=== PATIENT | female | born 1990 | race Caucasian/White ===

== ENCOUNTER 2017-06-18 20:32 | Emergency (ER) | payer BC, MEDICAID ==
[~2017-06-18] VITALS: Ht 165.1 cm; Wt 47.7 kg
[~2017-06-18 20:32] MED LIST: MOTRIN 600600 MG/TAB PO; PERCOCET 325 MG1 TA2 PO; PRENATAL PO
[2017-06-18 20:38] VITALS: TEMP 98
[2017-06-18 21:05] LABS: BASO % 0.2 % (0.0-2.0); EOS # 0.1 (0.0-0.7); EOS % 1.8 % (0-4.0); GRAN # 2.4 (1.4-6.5); GRAN % 46.4 % (42.2-75.2); HEMATOCRIT 38.8 % (37.0-47.0); HEMOGLOBIN 13.4 g/dl (12.5-16.0); LYMPH # 2.3 (1.2-3.4); LYMPH % 44.9 % (20.0-51.0); MEAN CELL VOLUME 83 fl (80.0-100.0); MEAN CORPUSCULAR HEMOGLOBIN 29 pg (27.0-31.0); MEAN CORPUSCULAR HGB CONC 35 g/dl (33.0-37.0); MEAN PLATELET VOLUME 10.2 fl (7.4-10.4); MONO # 0.3 (0.1-0.6); MONO % 6.5 % (1.7-9.3); PLATELET COUNT 203 K/mm3 (130-400); RED BLOOD COUNT 4.69 M/mm3 (4.10-5.30); REDCELL DISTRIBUTION WIDTH-CV 12.1 % (11.5-14.5)
[2017-06-18 21:17] LABS: ALANINE AMINOTRANSFERASE 32 U/L (9-52); ALKALINE PHOSPHATASE 71 U/L (50-136); ANION GAP 15 mmol/L (7-16); AST,SGOT 24 U/L (15-37); BILIRUBIN,TOTAL 0.5 mg/dL (0.0-1.0); BLOOD UREA NITROGEN 17 mg/dL (7-17); C-REACTIVE PROTEIN 1.9 mg/dL (0.0-0.9); CALCIUM 8.6 mg/dL (8.4-10.2); CARBON DIOXIDE 24 mmol/L (22-30); CHLORIDE 104 mmol/L (98-107); CREATININE, serum 0.58 mg/dL (0.52-1.25); GLUCOSE 130 mg/dL (74-106); LIPASE 161 U/L (23-300); POTASSIUM 3.4 mmol/L (3.4-5.0); SODIUM 143 mmol/L (137-145); TOTAL PROTEIN 7.2 gm/dL (6.4-8.2)
[2017-06-18 21:27] LABS: TROPONIN-I < 0.012 ng/mL (0.000-0.034)
[2017-06-18 21:36] LABS: COLLECTION METHOD CLEAN CATCH
[2017-06-18 21:42] LABS: PH 6 (5-8); SQUAMOUS EPITHELIAL 0-2 /hpf; URINE APPEARANCE Clear; URINE BACTERIA None Seen /hpf; URINE BILIRUBIN Negative (NEGATIVE); URINE BLOOD Negative (NEGATIVE); URINE COLOR Straw; URINE GLUCOSE Negative (NEGATIVE); URINE KETONE Negative (NEGATIVE); URINE LEUKOCYTE ESTERASE Negative (NEGATIVE); URINE NITRATE Negative (NEGATIVE); URINE PROTEIN(semi-quant) Negative (NEGATIVE); URINE RBC 0-2 /hpf; URINE UROBILINOGEN Negative (NEGATIVE)
[2017-06-18 22:38] VITALS: BP 104/72; PULSE 71
== END 2017-06-18 22:44 | disposition home or self-care (01) ==
LOC: COL.ER 20:32
PROVIDERS: Emergency Medicine
DX: R07.9 Chest pain, unspecified (principal)

== ENCOUNTER → 2018-05-05 | Outpatient (CLI) | payer BC | LOC: LDRO 16:00 | DX: Z34.90 Encounter for supervision of normal pregnancy, unspecified, unspecified trimester (principal); Z3A.00 Weeks of gestation of pregnancy not specified ==

== ENCOUNTER 2018-05-14 10:27 | Emergency (ER) | payer MEDICAID ==
[~2018-05-14] VITALS: Ht 165.1 cm; Wt 55.0 kg
[2018-05-14 11:02] LABS: BASO % 0.3 % (0.0-2.0); EOS # 0.2 (0.0-0.7); EOS % 1.8 % (0-4.0); GRAN # 6.6 (1.4-6.5); GRAN % 72.5 % (42.2-75.2); HEMATOCRIT 37.6 % (37.0-47.0); HEMOGLOBIN 12.5 g/dl (12.5-16.0); LYMPH # 1.8 (1.2-3.4); LYMPH % 19.6 % (20.0-51.0); MEAN CELL VOLUME 90 fl (80.0-100.0); MEAN CORPUSCULAR HEMOGLOBIN 30 pg (27.0-31.0); MEAN CORPUSCULAR HGB CONC 33 g/dl (33.0-37.0); MEAN PLATELET VOLUME 10.7 fl (7.4-10.4); MONO # 0.5 (0.1-0.6); PLATELET COUNT 185 K/mm3 (130-400); RED BLOOD COUNT 4.16 M/mm3 (4.10-5.30); REDCELL DISTRIBUTION WIDTH-CV 13.2 % (11.5-14.5)
[2018-05-14 11:14] LABS: ALBUMIN 3.4 gm/dL (3.5-5.0); BILIRUBIN,TOTAL 0.3 mg/dL (0.0-1.0); CALCIUM 8.4 mg/dL (8.4-10.2); CREATININE, serum 0.53 mg/dL (0.52-1.25); MAGNESIUM 1.7 mg/dL (1.6-2.3); POTASSIUM 3.7 mmol/L (3.4-5.0); TOTAL PROTEIN 6.4 gm/dL (6.4-8.2)
[2018-05-14 12:09] VITALS: BP 124/79; PULSE 93; TEMP 98
== END 2018-05-14 12:15 | disposition home or self-care (01) ==
LOC: LDRO 10:27 → COL.ER 10:27 → EDSTATUS 10:30 → COL.ER 12:15
PROVIDERS: Nurse Practitioner Primary Care
DX: O26.893 Other specified pregnancy related conditions, third trimester (principal); R25.2 Cramp and spasm; Z98.890 Other specified postprocedural states; Z3A.30 30 weeks gestation of pregnancy

== ENCOUNTER 2018-07-20 05:33 | Inpatient (IN) | payer MEDICAID ==
[~2018-07-20] VITALS: Ht 165.1 cm; Wt 58.2 kg
[2018-07-20] VITALS (18 sets, daily range): BP systolic 96–131; BP diastolic 56–83; PULSE 70–132; TEMP 97.7–98.5
--- NOTE | 2018-07-20 05:40 | NUR ---
0540 TO 213 FOR SCHEDULED REPEAT C/SECT. EFM ON WITH GOOD VARIABILTY AND ACCELS NOTED. PERMITS SIGNED. IV STARTED IN LEFT FOREARM AND BLOOD DRAWN AND TO LAB.
[2018-07-20 06:23] LABS: BASO % 0.5 % (0.0-2.0); EOS # 0.1 (0.0-0.7); EOS % 0.9 % (0-4.0); GRAN # 5.8 (1.4-6.5); GRAN % 65.6 % (42.2-75.2); HEMATOCRIT 38.2 % (37.0-47.0); HEMOGLOBIN 12.8 g/dl (12.5-16.0); LYMPH # 2.2 (1.2-3.4); LYMPH % 24.5 % (20.0-51.0); MEAN CELL VOLUME 90 fl (80.0-100.0); MEAN CORPUSCULAR HEMOGLOBIN 30 pg (27.0-31.0); MEAN CORPUSCULAR HGB CONC 34 g/dl (33.0-37.0); MEAN PLATELET VOLUME 11.5 fl (7.4-10.4); MONO # 0.7 (0.1-0.6); MONO % 7.7 % (1.7-9.3); PLATELET COUNT 152 K/mm3 (130-400); RED BLOOD COUNT 4.23 M/mm3 (4.10-5.30); REDCELL DISTRIBUTION WIDTH-CV 13.9 % (11.5-14.5)
--- NOTE | 2018-07-20 06:30 | NUR ---
Pt present of scheduled repeat c/s. Denies vaginal bleeding, LOF, regular contractions and reports GFM. EFM and toco applied. LR bolus infusing. Skin prepped performed. Admission assessment completed.
--- NOTE | 2018-07-20 14:00 | NUR ---
Bilateral leg lifts performed by pt. Tim barnes/wally. Up to side of bed. Changed into clean gown. Up to bedside. Pt states paresthesias in right leg and buttocks. Back to bed. Pericare performed. Updated on POC. Safety reviewed. No questions or concerns at this time. Bed locked in low position. Call light within reach.
[2018-07-21 00:10] VITALS: BP 88/48; PULSE 68; TEMP 97.4
[2018-07-21 05:38] VITALS: BP 102/59; PULSE 66; TEMP 98.4
[2018-07-21 06:46] LABS: BASO % 0.3 % (0.0-2.0); EOS # 0.1 (0.0-0.7); EOS % 0.6 % (0-4.0); GRAN # 7.5 (1.4-6.5); GRAN % 78.5 % (42.2-75.2); LYMPH # 1.1 (1.2-3.4); MEAN CELL VOLUME 90 fl (80.0-100.0); MEAN CORPUSCULAR HGB CONC 34 g/dl (33.0-37.0); MEAN PLATELET VOLUME 10.9 fl (7.4-10.4); MONO # 0.9 (0.1-0.6); MONO % 9.1 % (1.7-9.3); PLATELET COUNT 136 K/mm3 (130-400); RED BLOOD COUNT 3.42 M/mm3 (4.10-5.30)
[2018-07-21 06:48] LABS: HEMATOCRIT 30.8 % (37.0-47.0); HEMOGLOBIN 10.5 g/dl (12.5-16.0); MEAN CORPUSCULAR HEMOGLOBIN 31 pg (27.0-31.0)
[2018-07-21 07:50] VITALS: BP 107/70; PULSE 78; TEMP 97.2
--- NOTE | 2018-07-21 09:37 | NUR ---
Initial visit; Mom and Grandmother thanked Strategy Lead for offering congratulations and God's blessings for the of their baby boy. thanked Génesis for choosing [facility].
[2018-07-21] MEDS ORDERED: IBU600 MG PO (11:40)
[2018-07-21] MEDS ORDERED: PERCOCET 325 MG1 TA2 PO (11:41)
[2018-07-21 15:34] VITALS: BP 108/72; PULSE 74; TEMP 98.2
[2018-07-21 18:42] VITALS: BP 94/56; PULSE 88; TEMP 97.8
[2018-07-22 08:35] VITALS: BP 98/58; PULSE 82; TEMP 98.3
== END 2018-07-22 15:10 | disposition home or self-care (01) | DRG 788 ==
LOC: OB 05:33 → LDR 09:47 → OB 07-22 15:10
PROVIDERS: ADMIT Obstetrics & Gynecology
PROC: 10D00Z1 Extraction of Products of Conception, Low, Open Approach (ICD-10-PCS; principal; 2018-07-20)
DX: O34.211 Maternal care for low transverse scar from previous cesarean delivery (principal); Z3A.39 39 weeks gestation of pregnancy; Z37.0 Single live birth; K21.9 Gastro-esophageal reflux disease without esophagitis; O99.62 Diseases of the digestive system complicating childbirth; Z91.018 Allergy to other foods
CPT/HCPCS: J0690; J1885; J2175; J2210; J2370; J2405; J2590; J3010; J7120

== ENCOUNTER 2018-10-01 16:06 | Emergency (ER) | payer MEDICAID ==
[~2018-10-01] VITALS: Ht 165.1 cm; Wt 50.0 kg
[~2018-10-01 16:06] MED LIST changes: +IBU600 MG PO
[2018-10-01 16:09] VITALS: TEMP 97.7
[2018-10-01] MEDS ORDERED: PREDNISONE20 MG PO (17:05)
[2018-10-01 17:45] VITALS: BP 115/75; PULSE 86
[2018-10-01] MEDS ORDERED: EPIPEN 2-PAK1 MG/ML IM (17:52)
== END 2018-10-01 18:03 | disposition home or self-care (01) ==
LOC: COL.ER 16:06
DX: T78.40XA Allergy, unspecified, initial encounter (principal)
CPT/HCPCS: J1200; J2930; J7030

== ENCOUNTER → 2018-10-17 | Outpatient (CLI) | payer MEDICAID ==
[~2018-10-17] MED LIST changes: +EPIPEN 2-PAK1 MG/ML IM; +PREDNISONE20 MG PO
== END ==
LOC: COL.RAD 09:45
DX: R10.13 Epigastric pain (principal); R14.0 Abdominal distension (gaseous)

== ENCOUNTER 2018-11-07 15:39 | Emergency (ER) | payer MEDICAID ==
[~2018-11-07] VITALS: Ht 165.1 cm; Wt 45.9 kg
[2018-11-07 15:45] VITALS: TEMP 97.6
[2018-11-07] MEDS ORDERED: PREDNISONE10 MG PO (17:19)
[2018-11-07] MEDS ORDERED: ZYRTEC 10MG10 MG PO (17:20)
[2018-11-07 17:45] VITALS: BP 122/76; PULSE 90
== END 2018-11-07 17:45 | disposition home or self-care (01) ==
LOC: COL.ER 15:39
DX: T78.40XA Allergy, unspecified, initial encounter (principal)

== ENCOUNTER 2018-12-10 19:59 | Emergency (ER) | payer MEDICAID ==
[~2018-12-10] VITALS: Ht 165.1 cm; Wt 43.2 kg
[~2018-12-10 19:59] MED LIST changes: +PREDNISONE10 MG PO; +ZYRTEC 10MG10 MG PO
[2018-12-10 20:12] VITALS: BP 117/84; TEMP 98.1
[2018-12-10] MEDS ORDERED: PREDNISONE20 MG PO (20:49)
[2018-12-10 21:08] VITALS: PULSE 79
== END 2018-12-10 21:08 | disposition home or self-care (01) ==
LOC: COL.ER 19:59
DX: L50.9 Urticaria, unspecified (principal); Z98.890 Other specified postprocedural states

== ENCOUNTER 2018-12-28 20:36 | Emergency (ER) | payer MEDICAID ==
[~2018-12-28] VITALS: Ht 165.1 cm; Wt 43.6 kg
[2018-12-28 20:41] VITALS: TEMP 98.3
[2018-12-28 21:14] LABS: BASO % 0.3 % (0.0-2.0); EOS # 0.2 (0.0-0.7); EOS % 2.7 % (0-4.0); GRAN % 49.9 % (42.2-75.2); HEMATOCRIT 43.5 % (37.0-47.0); HEMOGLOBIN 14.6 g/dl (12.5-16.0); LYMPH # 3.3 (1.2-3.4); LYMPH % 41.5 % (20.0-51.0); MEAN CELL VOLUME 88 fl (80.0-100.0); MEAN CORPUSCULAR HEMOGLOBIN 29 pg (27.0-31.0); MEAN CORPUSCULAR HGB CONC 34 g/dl (33.0-37.0); MEAN PLATELET VOLUME 11.3 fl (7.4-10.4); MONO # 0.4 (0.1-0.6); MONO % 5.3 % (1.7-9.3); PLATELET COUNT 204 K/mm3 (130-400); RED BLOOD COUNT 4.97 M/mm3 (4.10-5.30); REDCELL DISTRIBUTION WIDTH-CV 13.5 % (11.5-14.5)
[2018-12-28 21:28] LABS: ALANINE AMINOTRANSFERASE 27 U/L (9-52); ALBUMIN 4.9 gm/dL (3.5-5.0); ALKALINE PHOSPHATASE 70 U/L (50-136); ANION GAP 11 mmol/L (7-16); AST,SGOT 27 U/L (15-37); BILIRUBIN,TOTAL 0.6 mg/dL (0.0-1.0); BLOOD UREA NITROGEN 24 mg/dL (7-17); CALCIUM 9.4 mg/dL (8.4-10.2); CARBON DIOXIDE 25 mmol/L (22-30); CHLORIDE 105 mmol/L (98-107); CREATININE, serum 0.71 (0.52-1.25); GLUCOSE 110 mg/dL (74-106); SODIUM 142 mmol/L (137-145)
[2018-12-28 21:29] LABS: C-REACTIVE PROTEIN < 0.5 mg/dL (0.0-0.9)
[2018-12-28] MEDS ORDERED: PREDNISONE20 MG PO (22:30)
[2018-12-28 22:42] VITALS: BP 103/75; PULSE 76
== END 2018-12-28 22:43 | disposition home or self-care (01) ==
LOC: COL.ER 20:36
PROVIDERS: Emergency Medicine
DX: T78.40XA Allergy, unspecified, initial encounter (principal)

== ENCOUNTER → 2022-01-08 | Outpatient (CLI) | payer MEDICAID | LOC: MC.RAD 13:56 | DX: N63.12 Unspecified lump in the right breast, upper inner quadrant (principal) ==